=== PATIENT | male | born 1985 | race Two or more races ===

== ENCOUNTER 2023-08-27 05:13 | Day surgery (SDC) | payer OTHER ==
[2023-08-20 11:33] LABS: HEMATOCRIT 43.8 % (39.0-48.0); MEAN CELL VOLUME 82.4 fL (80.0-100.00); MEAN CORPUSCULAR HEMOGLOBIN 28.2 pg (27.00-32.0); MEAN CORPUSCULAR HGB CONC 34.2 g/dl (32.0-36.0); PLATELET COUNT 353 K/uL (150-450); RED BLOOD COUNT 5.32 M/uL (4.00-6.00); RED CELL DISTRIBUTION WIDTH 14.1 % (11.5-14.5)
[2023-08-20 12:02] LABS: URINE APPEARANCE Clear; URINE BILIRRUBIN Negative (NEGATIVE); URINE BLOOD Negative; URINE COLOR Yellow; URINE GLUCOSE Negative (NEGATIVE); URINE LEUKOCYTE Negative; URINE NITRATE Negative; URINE PROTEIN Negative (NEGATIVE); URINE UROBILINOGEN 0.2 E.U./dl
[2023-08-20 12:07] LABS: URINE EPITHELIAL CELLS 2.1 uL (0.0-38.8); URINE RBC 3.4 uL (0.0-20.8)
[2023-08-20 12:26] LABS: URINE BACTERIA 1.2 uL (0.0-1933)
[2023-08-20 12:40] LABS: BILIRUBIN TOTAL 0.93 mg/dL (0.3-1.2); CALCIUM 9.5 mg/dL (8.5-10.1); CREATININE SERUM 0.96 mg/dL (0.70-1.30); GFR 88.13; GLOBULINA 4.1 G/DL (2.4-3.5); POTASSIUM 4.23 mEq/L (3.5-5.1); TOTAL PROTEIN 8.1 gm/dL (6.4-8.2)
[2023-08-20 12:45] LABS: PROTHROMBIN TIME 10.5 SECONDS (9.0-11.5)
[~2023-08-27] VITALS: Ht 188 cm; Wt 135.2 kg
[2023-08-27] MEDS ORDERED: CEFAZOLIN SODIUM 1,000 MG VIAL ONE (09:24)
[2023-08-27] MEDS ORDERED: LIDOCAINE HCL/EPINEPHRINE 20 ML VIAL IJ ONE (10:23)
[2023-08-27] MEDS ORDERED: LIDOCAINE HCL 1% 200MG/20ML VIAL IJ ONE (10:23)
== END 2023-08-27 15:05 | disposition home or self-care (01) ==
LOC: CIR.AMB 05:13
PROVIDERS: ATTEND Surgery
DX: D12.0 Benign neoplasm of cecum (principal); R22.1 Localized swelling, mass and lump, neck; Z20.822 Contact with and (suspected) exposure to COVID-19